=== PATIENT | male | born 1945 | race Caucasian/White ===

== ENCOUNTER → 2020-07-28 13:25 | Outpatient (BNVA) | payer MEDICARE, SELFPAY | PROVIDERS: PCP Nurse Practitioner; Visit Provider Urology | DX: N31.9 Neuromuscular dysfunction of bladder, unspecified (principal); N39.0 Urinary tract infection, site not specified; N20.0 Calculus of kidney; G82.50 Quadriplegia, unspecified; Z79.899 Other long term (current) drug therapy; Z96.0 Presence of urogenital implants | CPT/HCPCS: Q3014 ==

== ENCOUNTER → 2021-02-03 09:01 | Outpatient (BNVA) | payer MEDICARE, SELFPAY | PROVIDERS: Visit Provider Urology | DX: Z13.89 Encounter for screening for other disorder (principal) | CPT/HCPCS: Q3014 ==

== ENCOUNTER → 2022-02-17 11:21 | Outpatient (BNVA) | payer MEDICARE, SELFPAY | PROVIDERS: PCP Nurse Practitioner; Visit Provider Urology | DX: N31.9 Neuromuscular dysfunction of bladder, unspecified (principal); N21.0 Calculus in bladder; N39.0 Urinary tract infection, site not specified | CPT/HCPCS: Q3014 ==

== ENCOUNTER → 2022-08-31 11:35 | Outpatient (BNVA) | payer MEDICARE, SELFPAY | PROVIDERS: PCP Family Medicine; Visit Provider Urology | DX: N31.9 Neuromuscular dysfunction of bladder, unspecified (principal); N21.0 Calculus in bladder; Z87.440 Personal history of urinary (tract) infections; Z79.899 Other long term (current) drug therapy | CPT/HCPCS: Q3014 ==

== ENCOUNTER 2023-04-04 10:24 | Outpatient (AMB) | payer MEDICARE, SELFPAY ==
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
== END 2023-04-04 11:29 | disposition home or self-care (01) ==
LOC: HO.HUSH 10:24
PROVIDERS: PCP Family Medicine; Visit Provider Urology
DX: N39.0 Urinary tract infection, site not specified (principal)
CPT/HCPCS: 99213

== ENCOUNTER → 2023-04-04 10:24 | Outpatient (BNVA) | payer MEDICARE, SELFPAY | PROVIDERS: PCP Family Medicine; Visit Provider Urology | DX: N21.0 Calculus in bladder (principal); N31.9 Neuromuscular dysfunction of bladder, unspecified; N39.0 Urinary tract infection, site not specified; Z96.0 Presence of urogenital implants | CPT/HCPCS: Q3014 ==

== ENCOUNTER 2023-10-18 13:57 | Outpatient (AMB) | payer MEDICARE, SELFPAY ==
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
== END 2023-10-18 14:28 | disposition home or self-care (01) ==
LOC: HO.HUSH 13:57
PROVIDERS: PCP Family Medicine; Visit Provider Urology
DX: N21.0 Calculus in bladder (principal); N31.9 Neuromuscular dysfunction of bladder, unspecified; N39.0 Urinary tract infection, site not specified
CPT/HCPCS: 99213

== ENCOUNTER → 2023-10-18 13:57 | Outpatient (BNVA) | payer MEDICARE, SELFPAY | PROVIDERS: PCP Family Medicine; Visit Provider Urology ==

== ENCOUNTER 2024-04-23 13:20 | Outpatient (AMB) | payer MEDICARE, SELFPAY ==
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
== END 2024-04-23 14:18 | disposition home or self-care (01) ==
LOC: HO.HUSH 13:20
PROVIDERS: PCP Family Medicine; Referring Provider Family Medicine; Visit Provider Urology
DX: N39.0 Urinary tract infection, site not specified (principal); N31.9 Neuromuscular dysfunction of bladder, unspecified; N21.0 Calculus in bladder
CPT/HCPCS: 99213

== ENCOUNTER → 2024-04-23 13:20 | Outpatient (BNVA) | payer MEDICARE, SELFPAY | PROVIDERS: PCP Family Medicine; Visit Provider Urology ==

== ENCOUNTER 2024-10-25 13:04 | Outpatient (AMB) | payer MEDICARE, SELFPAY ==
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
== END 2024-10-25 13:42 | disposition home or self-care (01) ==
LOC: HO.HUSH 13:04
PROVIDERS: PCP Family Medicine; Visit Provider Urology
DX: N31.9 Neuromuscular dysfunction of bladder, unspecified (principal); N21.0 Calculus in bladder; N39.0 Urinary tract infection, site not specified
CPT/HCPCS: 99213; G2211